=== PATIENT | male | born 1945 | race Caucasian/White ===

== ENCOUNTER 2017-08-13 18:55 | Emergency (ER) | payer MEDICARE, OTHER ==
[~2017-08-13] VITALS: Ht 172.7 cm; Wt 59.1 kg
[2017-08-13] MEDS ORDERED: SODIUM CHLORIDE 0.9% 1,000 ML IV ONE (19:19)
[2017-08-13] MEDS ORDERED: SODIUM CHLORIDE FLUSH 10ML SYR IVF ONE (19:30)
[2017-08-13] MEDS ORDERED: MORPHINE SULFATE 4 MG/ML, 1ML ONE (19:56)
[2017-08-13] MEDS ORDERED: ONDANSETRON 2MG/ML, 2ML ONE (19:56)
[2017-08-13] MEDS ORDERED: ONDANSETRON 2MG/ML, 2ML IVPush ONE (20:00)
[2017-08-13] MEDS ORDERED: MORPHINE SULFATE 4 MG/ML, 1ML IVPush PRN (20:00)
[2017-08-13] MEDS ORDERED: ASPI-650 PO (20:01)
[2017-08-13] MEDS ORDERED: ALBU0.63 NEB (20:01)
[2017-08-13] MEDS ORDERED: MULT-717 PO (20:02)
[2017-08-13] MEDS ORDERED: CALC1CAP8 PO (20:02)
[2017-08-13] MEDS ORDERED: VARE0.5T PO (20:03)
[2017-08-13] MEDS ORDERED: OMEG-76 PO (20:03)
[2017-08-13] MEDS ORDERED: CYCL-259 PO (20:03)
[2017-08-13] MEDS ORDERED: FLUT100B INH (20:05)
[2017-08-13] MEDS ORDERED: IPRA0.2S35 INH (20:05)
[2017-08-13] MEDS ORDERED: OMEP10CA4 PO (20:06)
[2017-08-13] MEDS ORDERED: IPRA4AER INH (20:06)
[2017-08-13] MEDS ORDERED: TIOT18CA INH (20:07)
[2017-08-13] MEDS ORDERED: ASCO-90 PO (20:07)
[2017-08-13 20:15] LABS: BASOPHILS # (AUTO) 0.03 x10^3/uL (0-0.1); BASOPHILS % (AUTO) 0 % (0-1); EOSINOPHILS # (AUTO) 0.24 x10^3/uL (0-0.4); EOSINOPHILS % (AUTO) 2 % (1-7); LYMPHOCYTES # (AUTO) 0.97 x10^3/uL (1-3.4); LYMPHOCYTES % (AUTO) 9 % (22-44); MD NO; MEAN CORPUSCULAR HEMOGLOBIN 29.4 pg (27.5-34.5); MEAN CORPUSCULAR HGB CONC 33.4 g/dL (33.2-36.2); MEAN CORPUSCULAR VOLUME 88.3 fL (81-97); MEAN PLATELET VOLUME 6.8 fL (7.4-10.4); MONOCYTES # (AUTO) 0.53 x10^3/uL (0.2-0.8); MONOCYTES % (AUTO) 5 % (2-9); NEUTROPHILS # (AUTO) 9.64 x10^3/uL (1.8-6.8); NEUTROPHILS % (AUTO) 84 % (42-75); PLATELET COUNT 629 x10^3/uL (130-400); RED BLOOD COUNT 4.15 x10^6/uL (4.38-5.82); RED CELL DISTRIBUTION WIDTH 14.8 % (9.4-14.8)
[2017-08-13 20:26] LABS: ALBUMIN 3.8 g/dL (3.4-5.0); ANION GAP 8 mmol/L (5-15); CALCIUM 9.3 mg/dL (8.5-10.1); CHLORIDE 107 mmol/L (98-107)
[2017-08-13 20:29] LABS: ALANINE AMINOTRANSFERASE 15 U/L (12-78); ALKALINE PHOSPHATASE 91 U/L (45-117); BILIRUBIN,TOTAL 0.4 mg/dL (0.2-1.0); CREATININE 0.93 mg/dL (0.7-1.3)
[2017-08-13] MEDS ORDERED: MAGNESIUM CITRATE 300ML ORAL SOL PO ONE (21:30)
[2017-08-13] MEDS ORDERED: MAGNESIUM CITRATE 300ML ORAL SOL ONE (22:03)
[2017-08-13 23:07] LABS: MICROSCOPIC NOT IND
[2017-08-13 23:10] LABS: CULTURE INDICATED? NO
[2017-08-14 03:11] VITALS: BP 117/76
[2017-08-14] MEDS ORDERED: PINK LADY ENEMA 1,000 ML PR ONE (03:30)
== END 2017-08-14 04:38 | disposition home or self-care (01) ==
LOC: ED 22:22
DX: K59.00 Constipation, unspecified (principal)
CPT/HCPCS: 36415; 74021; 80053; 81003; 85025; 96361; 96374; 96375; 99285; J2405; J7030